=== PATIENT | female | born 1990 | race Caucasian/White ===

== ENCOUNTER 2020-07-14 16:15 | Emergency (ER) | payer BC ==
[~2020-07-14] VITALS: Ht 165.1 cm; Wt 57.6 kg
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
[2020-07-14] MEDS ORDERED: Lidocaine HCl 2% Jelly 6ml Tube TOPIC ONE (16:45)
[2020-07-14] MEDS ORDERED: Bacitracin Oint UD TOPIC ONE (16:45)
[2020-07-14] MEDS ORDERED: Tetanus/Diptheria/Pertussis IM ONE ×2 (16:45→17:15)
[2020-07-14 17:00] VITALS: BP 121/77
--- NOTE | 2020-07-14 17:00 | NUR ---
ER DISCHARGE NOTE: Patient is cleared to be discharged per ERMD, pt is aox4, on room air, with stable vital signs. pt was given dc and prescription instructions, pt was able to verbalize understanding, pt id band removed without complications. pt is able to ambulate with steady gait. pt took all belongings.
[2020-07-14] MEDS ORDERED: LD2JL30 TOPIC (17:01)
[2020-07-14] MEDS ORDERED: IBUPROFEN600 M1 ORAL (17:01)
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
== END 2020-07-14 17:00 | disposition home or self-care (01) ==
LOC: EEVIPCON 16:15 → EMR 16:45
DX: S61.402A Unspecified open wound of left hand, initial encounter (principal); S16.1XXA Strain of muscle, fascia and tendon at neck level, initial encounter; S60.222A Contusion of left hand, initial encounter; V43.52XA Car driver injured in collision with other type car in traffic accident, initial encounter; Y92.410 Unspecified street and highway as the place of occurrence of the external cause; Z23 Encounter for immunization
CPT/HCPCS: 90471; 90715; 99283